=== PATIENT | female | born 1955 | race Caucasian/White ===

== ENCOUNTER 2023-04-16 14:03 | Outpatient (AMB) | payer MEDICARE, MEDICAID, SELFPAY ==
--- NOTE | 2023-04-16 14:04 | A.OFFVIS_ITS ---
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 She reports her pain started 7 years ago with no injury. 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 She has had injections in the past, as recent as this past spring. The injection was done in [place] by a [facility] Doctor Martin. She has not had any physical therapy for this specifically and she does use a brace for her right knee. She uses a walker to walk and uses heat to help with pain. The right hurts more than the left. She has not had a viscosupplementation injection. She has had cortisone injections which gave her minimal relief. She wishes hold off on surgery for as long as possible. Allergies No Known Allergies Allergy (Verified 04/16/23 14:16) Physical Exam Const Other: Well-nourished well-developed very friendly female awake alert and oriented x3 in no acute distress Extrem Other: Bilateral lower extremity examination shows good capillary refill, no skin lesions noted, normal sensation light touch Bilateral knee examination shows minimal effusions, palpable crepitus with range of motion, pain with range of motion, range of motion from -3 degrees to 115 degrees, no instability Results Reviewed Results Reviewed: X-rays of the patient's bilateral knees taken previously show joint space narrowing, subchondral sclerosis, no acute bony abnormalities Assessment & Plan Assessment & Plan (1) Arthritis of left knee: Code(s): M17.12 - Unilateral primary osteoarthritis, left knee Plan: Ms. White presents with progressively worsening bilateral knee pains, right greater than left, due to degenerative joint disease. I had a lengthy discussion with the patient regarding the treatment options. She wishes to hold off on surgery for as long as possible. I agree with this plan. She has not gotten good relief from cortisone injections in the past. Thus, I will see whether not her insurance company will cover a series of viscosupplementation injections for both of her knees. I will see her back once the injections are available. If she fails continued non operative treatments we will further discuss the risks and benefits of total knee replacement surgery. The patient will follow-up as instructed. I spent 22 minutes in reviewing the patient's records and imaging studies, seeing the patient and documenting in the medical record. (2) Arthritis of right knee: Code(s): M17.11 - Unilateral primary osteoarthritis, right knee Coding Level of Care Code New Pt Level 2 (23022) Diagnoses Arthritis of left knee M17.12 Arthritis of right knee M17.11
== END 2023-04-16 14:25 | disposition home or self-care (01) ==
PROVIDERS: Visit Provider Orthopaedic Surgery
DX: M17.0 Bilateral primary osteoarthritis of knee (principal)
CPT/HCPCS: 99202

== ENCOUNTER → 2023-04-16 14:03 | Outpatient (BNVA) | payer MEDICARE, MEDICAID, SELFPAY | PROVIDERS: Visit Provider Orthopaedic Surgery | DX: M17.0 Bilateral primary osteoarthritis of knee (principal) | CPT/HCPCS: 99202 ==

== ENCOUNTER 2023-05-27 12:53 | Outpatient (AMB) | payer MEDICARE, MEDICAID, SELFPAY ==
--- NOTE | 2023-05-27 13:00 | A.OFFVIS_ITS ---
Intake Intake Visit Reasons: OV - B/L Durolane Gel Injections Intake Note: Bess is a 68 year old female who presents with complaints of progressively worsening bilateral knee pains. She describes her pains as sharp in nature. She has had cortisone injections in the past which gave her minimal relief. She has also tried Tylenol and anti-inflammatory medicines which gave her minimal relief. She has not had a viscosupplementation injection. She wishes to hold off on surgery for as long as possible. Allergies No Known Allergies Allergy (Verified 05/27/23 13:00) Physical Exam Const Other: Well-nourished well-developed very friendly female awake alert and oriented x3 in no acute distress Extrem Other: Bilateral lower extremity examination shows good capillary refill, no skin lesions noted, normal sensation light touch Bilateral knee examination shows minimal effusions, palpable crepitus with range of motion, pain with range of motion, range of motion from -3 degrees to 115 degrees, no instability Office Procedures Joint Injection/Drain Joint Injection/Drain Primary Site: right knee Prep: site was prepped using aseptic technique Injected: 60 mg of (Durolane) and 1% plain lidocaine Procedure: The patient tolerated the procedure well Coding 30868 - Large joint Procedure code (CPT) selection complete Joint Injection/Drain Joint Injection/Drain Primary Site: left knee Prep: site was prepped using aseptic technique Injected: 60 mg of (Durolane) and 1% plain lidocaine Procedure: The patient tolerated the procedure well Coding 72109 - Large joint Procedure code (CPT) selection complete Results Reviewed Results Reviewed: X-rays of the patient's bilateral knee show joint space narrowing, subchondral sclerosis, no acute bony abnormalities Assessment & Plan Assessment & Plan (1) Arthritis of left knee: Code(s): M17.12 - Unilateral primary osteoarthritis, left knee (2) Arthritis of right knee: Code(s): M17.11 - Unilateral primary osteoarthritis, right knee Plan Ms. White presents with bilateral knee pains due to degenerative joint disease. I had a lengthy discussion with the patient regarding the treatment options. She wishes to hold off on surgery for as long as possible. I agree with this plan. She has not gotten good relief from cortisone injections in the past. Thus, the risks and benefits of bilateral knee viscosupplementation injections were discussed with the patient. The patient wished to proceed. She tolerated the bilateral knee Durolane injections well. Activity modifications were discussed at length with the patient. She will follow up with me on an as- needed basis should her symptoms not plateau at an unacceptable level over the next few months. Feel free to call me at any time should questions regarding her orthopedic management arise. I spent 22 minutes in reviewing the patient's records and imaging studies, seeing the patient and documenting in the medical record. Orders: Orders AMB Joint Injection/Aspiration Today M17.12 - Unilateral primary osteoarthritis, left knee AMB Joint Injection/Aspiration Today M17.11 - Unilateral primary osteoarthritis, right knee Coding Level of Care Code Est Pt Level 2 (42808) Diagnoses Arthritis of left knee M17.12 Arthritis of right knee M17.11 CPT Codes Coding - 52381 Large joint: 44305 - Large joint ([id number]) Coding - 10004 Large joint: 34953 - Large joint ([id number])
== END 2023-05-27 13:21 | disposition home or self-care (01) ==
PROVIDERS: Visit Provider Orthopaedic Surgery
DX: M17.0 Bilateral primary osteoarthritis of knee (principal)
CPT/HCPCS: 20610

== ENCOUNTER → 2023-05-27 12:53 | Outpatient (BNVA) | payer MEDICARE, MEDICAID, SELFPAY | PROVIDERS: Visit Provider Orthopaedic Surgery | DX: M17.12 Unilateral primary osteoarthritis, left knee (principal); M17.11 Unilateral primary osteoarthritis, right knee | CPT/HCPCS: 20610; J7318 ==

== ENCOUNTER 2023-09-23 13:02 | Outpatient (AMB) | payer MEDICARE, MEDICAID, SELFPAY ==
--- NOTE | 2023-09-23 13:09 | A.OFFVIS_ITS ---
Intake Intake Visit Reasons: OV- B/L knee pain Intake Note: Bess is a 68 year old female who presents with bilateral knee pains. She describes her pains as achy in nature. She has had cortisone injections in the past which gave her minimal relief. She has also had viscosupplementation injections which gave her fairly good relief. She has tried Tylenol and anti- inflammatory medicines which gave her only mild relief. She has also done physical therapy exercises which aggravated her pain. She wishes to hold off on surgery for as long as possible. Allergies No Known Allergies Allergy (Verified 09/23/23 13:12) Medication List - Last Reconciled 09/23/23 by Oscar Ortiz MD atorvastatin 20 mg PO DAILY cyanocobalamin (vitamin B-12) 1,000 mcg PO DAILY enoxaparin mg subcut hydrochlorothiazide 12.5 mg PO DAILY levothyroxine 25 mcg PO DAILY metformin ER 500 mg PO DAILY semaglutide (Ozempic) mg subcut warfarin mg PO Physical Exam Const Other: Well-nourished well-developed very friendly female awake alert and oriented x3 in no acute distress Extrem Other: Bilateral lower extremity examination shows good capillary refill, no skin lesions noted, normal sensation light touch Bilateral knee examination shows minimal effusions, palpable crepitus with range of motion, pain with range of motion, range of motion from -3 degrees to 115 degrees, no instability Results Reviewed Results Reviewed: X-rays of the patient's bilateral knee show joint space narrowing, subchondral sclerosis, no acute bony abnormalities Assessment & Plan Assessment & Plan (1) Arthritis of right knee: Code(s): M17.11 - Unilateral primary osteoarthritis, right knee (2) Arthritis of left knee: Code(s): M17.12 - Unilateral primary osteoarthritis, left knee Plan Ms. White presents with bilateral knee pains due to degenerative joint disease. I had a lengthy discussion with the patient regarding the treatment options. She wishes to hold off on surgery for as long as possible. I agree wi th this plan. She has not gotten good relief from cortisone injections in the past. Thus, I will see whether not her insurance company will cover a another viscosupplementation injection for both of her knees. I will see her back once the injections are available. Feel free to call me at any time should questions regarding her orthopedic management arise. I spent 22 minutes in reviewing the patient's records and imaging studies, seeing the patient and documenting in the medical record. Coding Level of Care Code Est Pt Level 2 (79531) Diagnoses Arthritis of right knee M17.11 Arthritis of left knee M17.12
== END 2023-09-23 13:48 | disposition home or self-care (01) ==
PROVIDERS: Visit Provider Orthopaedic Surgery
DX: M17.0 Bilateral primary osteoarthritis of knee (principal)
CPT/HCPCS: 99213

== ENCOUNTER → 2023-09-23 13:02 | Outpatient (BNVA) | payer MEDICARE, MEDICAID, SELFPAY | PROVIDERS: Visit Provider Orthopaedic Surgery | DX: M17.0 Bilateral primary osteoarthritis of knee (principal) | CPT/HCPCS: 99212 ==

== ENCOUNTER 2023-12-16 09:37 | Outpatient (AMB) | payer MEDICARE, MEDICAID, SELFPAY ==
--- NOTE | 2023-12-16 09:42 | A.OFFVIS_ITS ---
Vital Signs 12/16/23 09:45 Height 5 ft 3 in Weight 240 lb BMI 42.5 Intake Visit Reasons: O/V B/L durolane injection Intake Note: Bess is a 68 year old female who presents today with her granddaughter with complaints of bilateral knee pains. The patient describes her pains as sharp and severe in nature. Her pains have gotten worse over the last few years in spite of continued non operative treatments. She has had cortisone injections which gave her no relief. She has also had viscosupplementation injections which gave her fairly good relief. She has tried Tylenol which gives her minimal relief. She would like to hold off on surgery for as long as possible. Allergies No Known Allergies Allergy (Verified 12/16/23 09:45) Medication List - Last Reconciled 12/16/23 by Oscar Ortiz MD atorvastatin 20 mg PO DAILY cyanocobalamin (vitamin B-12) 1,000 mcg PO DAILY enoxaparin mg subcut hydrochlorothiazide 12.5 mg PO DAILY levothyroxine 25 mcg PO DAILY metformin ER 500 mg PO DAILY semaglutide (Ozempic) mg subcut warfarin mg PO Physical Exam Vital Signs: BMI result Body Mass Index 42.5 Const Other: Well-nourished well-developed very friendly female awake alert and oriented x3 in no acute distress Extrem Other: Bilateral lower extremity examination shows good capillary refill, no skin lesions noted, normal sensation light touch Bilateral knee examination shows minimal effusions, palpable crepitus with range of motion, pain with range of motion, no instability Office Procedures Joint Injection/Drain Joint Injection/Drain Primary Site: left knee Prep: site was prepped using aseptic technique Injected: 60 mg of (Durolane viscosupplementation) and 1% plain lidocaine Procedure: The patient tolerated the procedure well Coding 19532 - Large joint Procedure code (CPT) selection complete Joint Injection/Drain Joint Injection/Drain Primary Site: right knee Prep: site was prepped using aseptic technique Injected: 60 mg of (Durolane viscosupplementation) and 1% plain lidocaine Procedure: The patient tolerated the procedure well Coding 86621 - Large joint Procedure code (CPT) selection complete Results Reviewed Results Reviewed: X-rays of the patient's bilateral knee show joint space narrowing, subchondral sclerosis, no acute bony abnormalities Assessment & Plan Assessment & Plan (1) Arthritis of left knee: Code(s): M17.12 - Unilateral primary osteoarthritis, left knee Category: Medical (2) Arthritis of right knee: Code(s): M17.11 - Unilateral primary osteoarthritis, right knee Category: Medical Plan Ms. White presents with bilateral knee pains due to degenerative joint di sease. I had a lengthy discussion with the patient regarding the treatment options. She wishes to hold off on surgery for as long as possible. I agree with this plan. She has not gotten good relief from cortisone injections in the past. The risks and benefits of bilateral knee Durolane viscosupplementation injections were discussed at length with the patient. The patient wished to proceed. She tolerated the injections well. She will continue with her home exercise program. She will contact me prior to her follow-up appointment in 3 months should any questions or concerns arise. I spent 21 minutes in reviewing the patient's records and imaging studies, seeing the patient and documenting in the medical record. Orders: Orders AMB Joint Injection/Aspiration Today M17.11 - Unilateral primary osteoarthritis, right knee AMB Joint Injection/Aspiration Today M17.12 - Unilateral primary osteoarthritis, left knee Coding Level of Care Code Est Pt Level 3 (16072) Diagnoses Arthritis of left knee M17.12 Arthritis of right knee M17.11 CPT Codes Coding - 54327 Large joint: 10064 - Large joint ([id number]) Coding - 55628 Large joint: 14983 - Large joint ([id number])
[2023-12-16 09:45] VITALS: BMI 42.5
== END 2023-12-16 10:04 | disposition home or self-care (01) ==
PROVIDERS: Visit Provider Orthopaedic Surgery
DX: M17.0 Bilateral primary osteoarthritis of knee (principal)
CPT/HCPCS: 20610; 99213

== ENCOUNTER → 2023-12-16 09:37 | Outpatient (BNVA) | payer MEDICARE, MEDICAID, SELFPAY | PROVIDERS: Visit Provider Orthopaedic Surgery | DX: M17.0 Bilateral primary osteoarthritis of knee (principal) | CPT/HCPCS: 20610; 99212; J7318 ==

== ENCOUNTER 2024-08-04 08:45 | Outpatient (REF) | payer MEDICARE, SELFPAY ==
--- OUTSIDE RECORDS SUMMARY | 2024-08-05 09:00 | XMS_ITS | Clinical Summary ---
Author Organization [facility] Address [address] [place] [address] Care Team Providers Care Counter Top Maker Name Role Phone Katerine Novak Primary Care Provider [phone] Medical History Medical History Date Comments Essential [...] age to complete this topic Care Teams Counter Top Maker Relationship Specialty Start Date End Date Katerine Novak PA [address] [place] [phone] PCP - General Internal Medicine 03/25/16
--- OUTSIDE RECORDS SUMMARY | 2024-08-05 09:00 | XMS_ITS | Clinical Summary ---
Author Organization [facility] Address [address] [place] [address] Care Team Providers Care Granite Countertop Installer Name Role Phone Unavailable Primary Care Provider [...] 11/202003/29/2021 Polyneuropathy associated with underlying diseas e ([facility]) 09/21/2020 Acquired hypothyroidism 04/25/2020 Atrial flutter ([facility]) 04/06/2019 Pacemaker 03/16/2019 04/06/2019 Controlled type 2 diabetes m ellitus with hyperglycemia ([facility]) 12/03/2018 Hyperhidrosis 03/29/2018 Dyspepsia 03/29/2018 History of [...] on April 13, 2017 9:50 Encounter info: [id number], [facility] [place] 04/13/2017 - 04/13/2017 Contributor system: [employer] * Final Report * NM Myocardial Perfusion Spect Multi Myocardial Perfusion Imaging Demographics Patient Name SG BUTLER Gender Female [employer] Room Number Height 65 inches Date of 1955 Weight 300 pounds Age 61 year(s) BSA 2.35 m2 Accession Number [id number] BMI 49.98 kg/m2 Date of study 04/13/2017 Resident Referring Physician Donato Brunson MD Fellow Ekaterina Flores MD Interpreting Physician Patrice Do MD [place] Technologist Devon Henriquez Procedure Procedure Type: Myocardial [...] complete appropriate response Functional capacity:Not assessed HR/BP product:58872 Time of RP Injection:050 min Chest pain:No [...] This document has an image Atrial fibrillation ([facility]) 08/25/2017 Overview (08/25/2017): Name: BESS BETTENCOURT Admit Date: 05/25/17 - 1955/62yr Discharge Date: Location: [facility] - Report #: [id number] DATE OF PROCEDURE: 05/25/2017 PRIMARY CARE PHYSICIAN: RICHARD Nair PROCEDURE PERFORMED: 1. Supraventricular tachycardia ablation. 2. A 3D electro-anatomy mapping. 3. Isuprel drug testing. 4. Intracardiac echocardiography. 5. Transseptal puncture. INDICATION: This is a very pleasant 62-year-old Polish-speaking female who has history of recurrent symptomatic [...] femoral vein using modified Seldinger technique. One 8-New Zealander and 5-New Zealander sheath were placed into the right femoral vein and two 7-New Zealander and 5-New Zealander sheath was placed into the left femoral vein. Catheters were placed in their respective positions. 1. Dynamic Decapolar [employer] catheter for coronary sinus with left atrial pacing and recording. 2. [facility] for right atrium. 3. [facility] for right ventricle. 4. [facility] his bundle pacing and recording. Baseline intervals reveal [place] interval 148 milliseconds, AH of 56 milliseconds. [...] made to go transseptal. We placed a 9-New Zealander IV sheath in the right groin for the ICE catheter. Then, with the help of SL1 and [place] needle, we were able to obtain a [...] obtain a safe transseptal access with a Bucyrus needle, but while advancing the sheath, we lost the transseptal access. Then, we reattempted after placing ICE catheter in adequate position to see the fossa ovalis and sheath actually fell into the fossa ovalis and went transseptal without actually advancing the needle. I am not 100% confirm this happened because of PFO or because of the previous transseptal access with Bucyrus needle. Nonetheless, we did a couple of [...] the outpatient visit. Diana Olvera MD Doc #:[id number] cc: RICHARD Nair PA Dictating Provider: DIANA [...] degenerative changes without acute fracture or dislocation. [id number] Dictating Physician: ISSAC SALAS MD Electronically Signed [...] Plan of Treatment Not on file [place]
== END 2024-08-04 08:46 | disposition home or self-care (01) ==
LOC: HO.HOSX 08:45
PROVIDERS: Visit Provider Orthopaedic Surgery
DX: M17.12 Unilateral primary osteoarthritis, left knee (principal)
CPT/HCPCS: 20610; 99212; J2003; J7318

== ENCOUNTER 2024-08-04 09:03 | Outpatient (AMB) | payer MEDICARE, MEDICAID, SELFPAY ==
[2024-08-04 09:20] VITALS: BMI 42.5
--- NOTE | 2024-08-04 09:20 | MHC.OFFVIS ---
Vital Signs 08/04/24 09:20 Height 5 ft 3 in Weight 240 lb BMI 42.5 Intake Visit Reasons: OV- B/L knee pain Intake Note: Bess is a 69 year old female who presents with complaints of progressively worsening bilateral knee pains. She describes her pains as sharp in nature. She has had cortisone injections in the past which gave her minimal relief. She has also had Durolane viscosupplementation injections which gave her good relief. She has tried Tylenol and anti-inflammatory medicines which gave her minimal relief. She would like to hold off on surgery if at all possible. International Representative Required: No Allergies No Known Allergies Allergy (Verified 08/04/24 09:22) Medication List - Last Reconciled 08/04/24 by Oscar Ortiz MD atorvastatin 20 mg PO DAILY cyanocobalamin (vitamin B-12) 1,000 mcg PO DAILY enoxaparin mg subcut hydrochlorothiazide 12.5 mg PO DAILY levothyroxine 25 mcg PO DAILY metformin ER 500 mg PO DAILY semaglutide (Ozempic) mg subcut warfarin mg PO Physical Exam Vital Signs: BMI result Body Mass Index 42.5 Const Other: Well-nourished well-developed very friendly female awake alert and oriented x3 in no acute distress Extrem Other: Bilateral lower extremity examination shows good capillary refill, no skin lesions noted, normal sensation light touch Bilateral knee examination shows minimal effusions, palpable crepitus with range of motion, pain with range of motion, no instability Office Procedures AMB Joint Injection/Aspiration Joint Injection/Aspiration Primary Site: left knee Prep: site was prepped using aseptic technique Injected: 60 mg of (Durolane viscosupplementation) and 1% plain lidocaine Procedure: The patient tolerated the procedure well Coding 11973 - Large joint Procedure code (CPT) selection complete AMB Joint Injection/Aspiration Joint Injection/Aspiration Primary Site: right knee Prep: site was prepped using aseptic technique Injected: 60 mg of (Durolane viscosupplementation) and 1% plain lidocaine Procedure: The patient tolerated the procedure well Coding 71764 - Large joint Procedure code (CPT) selection complete Results Reviewed Results Reviewed: X-rays of the patient's bilateral knees taken previously show joint space narrowing, subchondral sclerosis, no acute bony abnormalities Assessment & Plan Assessment & Plan (1) Osteoarthritis of left knee: Code(s): M17.12 - Unilateral primary osteoarthritis, left knee Category: Medical (2) Osteoarthritis of right knee: Code(s): M17.11 - Unilateral primary osteoarthritis, right knee Category: Medical Plan Bess presents with bilateral knee pains due to osteoarthritis. The risks and benefits of bilateral knee Durolane viscosupplementation injections were discussed at length with the patient. The patient wished to proceed. She tolerated the injections well. She will continue with her home exercise program. She will contact me prior to her follow-up appointment in 6 months should any questions or concerns arise. Feel free to call me at any time should questions regarding her orthopedic management arise. I spent 22 minutes in reviewing the patient's records and imaging studies, seeing the patient and documenting in the medical record. Orders: Orders XR knee RT 3V Today M17.11 - Unilateral primary osteoarthritis, right knee AMB Joint Injection/Aspiration Today M17.12 - Unilateral primary osteoarthritis, left knee AMB Joint Injection/Aspiration Today M17.11 - Unilateral primary osteoarthritis, right knee XR knee LT 3V Today M17.12 - Unilateral primary osteoarthritis, left knee Coding Level of Care Code Est Pt Level 3 (21589) Complex EM visit Add On G2211 Diagnoses Osteoarthritis of left knee M17.12 Osteoarthritis of right knee M17.11 CPT Codes Coding - 13373 Large joint: 78261 - Large joint ([id number]) Coding - 19561 Large joint: 75373 - Large joint ([id number])
--- OUTSIDE RECORDS SUMMARY | 2024-08-04 09:33 | XMS_ITS | Clinical Summary ---
Author Organization [facility] Address [address] [place] [address] Care Team Providers Care Child Protective Services Specialist Name Role Phone Unavailable Primary Care Provider Unavailabl e Source Comments PLEASE NOTE, if this patient is a minor, it may be UNLAWFUL to discuss sensitive information that is contained in these records (such as FAMILY PLANNING, MENTAL HEALTH or SUBSTANCE ABUSE) with the minor patient's parent or other person without the patient's specific authorization.[facility] Allergies Active Allergy Reactions Criticality Noted Date Comments Lisinopril-Hydrochlorothiazide 01/04 Cough Medications No known medications Active Problems Problem Noted Date Diagnosed Date Hx Right MCA stroke s/p thrombectomy 12/2021 LUTHER (obstructive sleep apnea) 11/202003/29/2021 Polyneuropathy associated with underlying diseas e ([facility]) 09/21/2020 Acquired hypothyroidism 04/25/2020 Atrial flutter ([facility]) 04/06/2019 Pacemaker 03/16/2019 04/06/2019 Controlled type 2 diabetes m ellitus with hyperglycemia ([facility]) 12/03/2018 Hyperhidrosis 03/29/2018 Dyspepsia 03/29/[address] ress test 04/13/2017: see impression in overview 08/25/2017 Overview (08/25/2017): Result type: NM Myocard Perf SPECT Multi Result date: April 13, 2017 9:50 Result status: Modified Result title: NM Myocardial Perfusion Spect Multi Performed by: Patrice Do MD on April 13, 2017 9:50 Verified by: Patrice Do MD on April 13, 2017 9:50 Encounter info: [id number], [facility] [place], One Time OP, 04/13/2017 - 04/13/2017 Contributor system: Asana * Final Report * NM Myocardial Perfusion Spect Multi Myocardial Perfusion Imaging Demographics Patient Name SG BUTLER Gender Female [employer] Room Number Height 65 inches Date of 1955 Weight 300 pounds Age 61 year(s) BSA 2.35 m2 Accession Number [id number] BMI 49.98 kg/m2 Date of study 04/13/2017 Resident Referring Physician Donato Brunson MD Fellow Ekaterina Flores MD Interpreting Physician Patrice Do MD [facility] Technologist Devon Henriquez Procedure Procedure Type: Myocardial Perfusion Imaging:NM Myocardial Perfusion Spect Multi Indications: Supraventricular Tachycardia. Stress Protocols Resting HR:45 bpm Resting BP:162/79 mmHg Stress Protocol:Pharmacologic - IV Regadenoson Dose: 0.4 mg Reason for Pharmacologic: Unable to ambulate Peak HR:75 bpm HR response: Not assessed Peak BP:168/100 mmHg (pharmacologic study) Predicted HR: 159 bpm HR recovery: Not Assessed % of predicted HR: 47 (Pharmacologic Study) Test duration: 1 min BP response: Normal resting BP with Reason for termination:Protocol complete appropriate response Functional capacity:Not assessed HR/BP product:13325 Time of RP Injection:050 min Chest pain:No chest pain ST Changes:No significant ST changes Arrhythmias No arrhythmias. Complications Procedure complication was none. Stress Interpretation Pharmacologic study only. Physiologic response not assessed - pharm stress. No ECG evidence of ischemia. Imaging Protocols - One Day Rest Stress Isotope:Tc99m Sestamibi Isotope: Tc99m Sestamibi Isotope dose:11.7 mCi IV Isotope dose:36.2 mCi IV Date:04/13/2017 Date:04/13/2017 Technique: Gated Technique: Gated Supine Supine Imaging Findings Very large fixed anteroseptal, anterior, anterolateral and apical defect with preserved regional wall thickening most compatible with soft tissue attenuation. No definite reversible defects noted. Normal overall LV systolic function with an estimated LVEF of approximately 59 % at rest and 72 % on the delayed post stress images with normal regional wall thickening. Imaging Results Rest ejection Stress ejection Ejection fraction:59 % Ejection fraction:72 % EDV :133 ml EDV :130 ml ESV :54 ml ESV :37 ml Stroke volume :79 ml Stroke volume :93 ml LV mass :138 gr LV mass :146 gr Conclusions Summary Very large fixed anteroseptal, anterior, anterolateral and apical defect with preserved regional wall thickening most compatible with soft tissue attenuation. No definite reversible defects noted. Normal overall LV systolic function with an estimated LVEF of approximately 59 % at rest and 72 % on the delayed post stress images with normal regional wall thickening. ECG portion of the stress test reported separately. Signatures NM Myocardial Perfusion Spect Multi This document has an image Atrial fibrillation ([facility]) 08/25/2017 Overview (08/25/2017): Name: BESS BETTENCOURT Admit Date: 05/25/17 - 1955/62yr Discharge Date: Location: [facility] - Report #: [id number] DATE OF PROCEDURE: 05/25/2017 PRIMARY CARE PHYSICIAN: RICHARD Nair PROCEDURE PERFORMED: 1. Supraventricular tachycardia ablation. 2. A 3D electro-anatomy mapping. 3. Isuprel drug testing. 4. Intracardiac echocardiography. 5. Transseptal puncture. INDICATION: This is a very pleasant 62-year-old Eritrean-speaking female who has history of recurrent symptomatic supraventricular tachycardia at 200 beats per minute with hemodynamic instability and required cardioversion in the ER. She was brought in electively for EP study and ablation. Risks and benefits of the procedure were explained, informed consent obtained. Alternative medical therapy was offered. The patient agreed to proceed. PROCEDURE DETAILS: Bilateral groins were prepped and draped in sterile aseptic precautions. 2% lidocaine was used for local anesthesia and 2 accesses were obtained into the right femoral vein and 3 into the left femoral vein using modified Seldinger technique. One 8-Mauritanian and 5-Mauritanian sheath were placed into the right femoral vein and two 7-Mauritanian and 5-Mauritanian sheath was placed into the left femoral vein. Catheters were placed in their respective positions. 1. Dynamic Decapolar [employer] catheter for coronary sinus with left atrial pacing and recording. 2. [facility] for right atrium. 3. [facility] for right ventricle. 4. [facility] his bundle pacing and recording. Baseline intervals reveal NJ interval 148 milliseconds, AH of 56 milliseconds. HV was 50 milliseconds, QRS duration 76 milliseconds, QT 414 milliseconds, RR interval was 1104 milliseconds. Then the comprehensive electrophysiology study was performed with attempted induction of arrhythmia. With pacing at Wenckebach cycle length, we were able to induce a supraventricular tachycardia with a long RP morphology. The CS activation was distal to proximal during the SVT with earliest CS signal and CS distal with a VA timing of approximately 88 milliseconds. This was nonsustained and we then started Isuprel at 2 mcg per kg per minute. Repeat SVT was performed with similar maneuver at Wenckebach cycle length pacing at Wenckebach cycle length. Again repeat SVT was started cycle length of 275 milliseconds. Pacing from RV catheter led to VAV response with post-pacing interval of 378 milliseconds with tachycardia cycle length of 275 milliseconds. His refractory PVCs were able to alter the tachycardia and delay the atrial activation by a 15-20 milliseconds. 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 The tachycardia was terminated with rapid atrial pacing. Then, we performed V pacing from the ventricle, which also lead to an eccentric activation of coronary sinus with CS distal at the earliest activation. At the time, decision was made to go transseptal. We placed a 9-Mauritanian IV sheath in the right groin for the ICE catheter. Then, with the help of SL1 and [place] needle, we were able to obtain a transseptal access under echocardiographic guidance. Transseptal access was slightly difficult. The fossa ovalis was not very easily visualized by the ICE catheter. Different maneuvers with the ICE catheter with some retroflexion as well as some rotation of the catheter, we were able to see some part of the fossa ovalis. Under careful ICE guidance as well as fluoroscopy guidance, we were able to obtain a safe transseptal access with a [place] needle, but while advancing the sheath, we lost the transseptal access. Then, we reattempted after placing ICE catheter in adequate position to see the fossa ovalis and sheath actually fell into the fossa ovalis and went transseptal without actually advancing the needle. I am not 100% confirm this happened because of PFO or because of the previous transseptal access with C[place]om needle. Nonetheless, we did a couple of saline infusions to confirm we were in the left atrium. We did Isovue contrast infusion to make sure we were in the left atrium and pulmonary vein was visualized. At that time, then we would advance the guidewire into the left upper pulmonary vein. Echocardiography was used to confirm, make sure there was no pericardial effusion. Then, 8000 units of heparin was given. Then, we exchanged the wire to the ablation catheter. Then mapped the posterolateral left atrium with the help of an irrigated ablation catheter for earliest signals. Actually, pretty good signals were found from 6 o'clock till 7:30 on the mitral annulus. We were 15-25 milliseconds earlier than the CS catheter. Some of the really good looking early signals, we performed ablation on it, but were not able to terminate the VA conduction. The ablation was performed and continuous ventricular pacing with eccentric CS activation. Eventually, at around 7 o'clock position, we came on ablation and the VA timing increased and eventually the VA conduction stopped after maybe 30 seconds of ablation. After stopping the ablation, the VA conduction restarted. We knew we were in the vicinity of the pathway and then little more anterior torque to the catheter, more toward the annulus, actually we found a good location and within 3 seconds of ablation the VA conduction was changed from eccentric to concentric with Wenckebach pattern. Then, ablation was continued for another 30 seconds and came off. We waited for 10 minutes after the ablation with confirmed concentric VA activation. We again did a comprehensive electrophysiology study with Isuprel up to 2 mcg and rapid atrial pacing as well as early premature stimuli from the atrium and no tachycardia could be induced. EP study details reveals sinus node recovery time of 1200 milliseconds with corrected sinus node of 95 milliseconds. AV Wenckebach cycle length was 300 milliseconds. AV chasity ERP was 600/270 milliseconds. Atrial ERP was 600/250 milliseconds and while on Isuprel the AV chasity ERP was 600/220 milliseconds and VA Wenckebach cycle was 280 milliseconds. At the end of the case, all catheters removed. ICE catheter again was used to confirm, make sure there was no pericardial effusion. ACT was checked and once the ACT was less than 180 seconds we withdrew all the sheaths and hemostasis was achieved. The patient tolerated the procedure well. There were no complications. During the case, heparin boluses were given for target ACT of 300+. 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 RECOMMENDATIONS: The patient will be observed in bed rest for 4 hours and can be later discharged today. We will not change any medications at this time. She will continue her 50 of metoprolol, which probably will be reduced and then discontinued as applicable in the outpatient visit. Diana Olvera MD Doc #:[id number] cc: RICHARD Nair PA Dictating Provider: DIANA OLVERA MD CHASHA/ ETS <Electronically signed by DIANA OLVERA MD> [id number] S: 06/02/17 1317 Chronic pain of both knees 08/25/2017 Overview (08/25/2017): CR Knee LT 4 or more View - 10/17/16 - 1000 INDICATION: Knee pain FINDINGS: 4 views of the right knee were obtained. Mild medial joint space narrowing with osteophytosis. There is no evidence of fracture or dislocation. No radiopaque foreign body or periosteal reaction is noted. There is no significant soft tissue abnormality. Possible small joint effusion. CONCLUSION: Mild degenerative changes without acute fracture or dislocation. 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 09/26/2014, EMG 03/25/2016 with bilateral lumbar radiculopathy 09/26/2013 Morbid obesity (HCC-CMS) 09/26/2013 S/P CYNDIE (total abdominal hysterectomy) 1992 no m alignancy 09/26/2013 Essential hypertension, benign 09/26/2013 Social History Tobacco Use Types Packs/Day Years Used Date Smoking Tobacco: Never Smokeless Tobacco: Never Alcohol Use Standard Drinks/Week Comments No 0 (1 standard drink = 0.6 oz pur e alcohol) Social Connections Answer Date Recorded Connectedness 0 10/31/2021 Financial Resource Strain Answer Date R ecorded Financial Resource Strain 0 2021 Stress Answer Date Recorded Stress 0 10/31/2021 Physical Activity Answer Date Recorded Physical Activity 0 02/12/2019 Food Insecurity Answer Date Recorded Food 0 10/31/2021 Transportation Needs Answer Date Record ed Transportation 0 10/31/2021 Housing Stability Answer Date Recorded Housing 0 10/31/2021 Safety and Environment Answer Date Noe rded Safety 0 02/12/2019 Utilities Answer Date Recorded Utilities 0 10/31/2021 Employment Answer Date Recorded Employment 0 02/12/2019 Comments No Sex and Gender Information Value Date Recorded Sex Assigned at Female 08/25/2017 7:13 PM PST Legal Sex Female 8:55 AM PST Gender Identity Female 08/25/2017 7:13 PM PST Sexual Orientation Straight 08/25/2017 7: 13 PM PST Last Filed Vital Signs Vital Sign Reading Time Taken Comments Blood Pressure 126/72 10/31/2021 10:29 AM EDT Pulse 60 10/31/2021 10:29 AM EDT Temperature 36.8 ??C (98.3 ??F) 10/31/2021 10:29 AM E DT Respiratory Rate 20 10/31/2021 10:29 AM EDT Oxygen Saturation 91% 10/31/2021 10:29 AM EDT Inhaled Oxygen Concentration - - Weight 133.8 kg (295 lb) 10/31/2021 10:29 AM EDT Height 165.1 cm (5' 5 ) 10/31/2021 10:29 AM EDT Body Mass Index 49.09 10/31/2021 10:29 AM EDT Plan of Treatment Not on file [place]
--- OUTSIDE RECORDS SUMMARY | 2024-08-04 09:33 | XMS_ITS | Clinical Summary ---
Author Organization [facility] Address [address] [place] [address] Care Team Providers Care Telephone Appointment Clerk Name Role Phone Katerine Novak Primary Care Provider [phone] Medical History Medical History Date Comments Essential hypertension DX:Essent ial hypertension Family History Medical History Relation Name Comments Autoimmune disease Neg Hx Breast cancer Neg Hx Colon cancer Neg Hx Coronary artery disease Neg Hx Diabetes Neg Hx Heart attack Neg Hx Heart failure Neg Hx Hyperlipidemia Neg Hx Hypertension Neg Hx Mental illness Neg Hx Prostate cancer Neg Hx Sleep apnea Neg Hx Thyroid disease Neg Hx Social History Tobacco Use Types Packs/Day Years Used Date Smoking Tobacco: Never Smokeless Tobacco: Never Alcohol Use Standard Drinks/Week Comments Not Asked 0 (1 standard drink = 0.6 oz pur e alcohol) Comments Unknown Sex and Gender Information Value Date Recorded Sex Assigned at Not on file Legal Sex Female 11:16 AM EST Gender Identity Not on file Sexual Orientation Not on file Obstetrics History Plan of Treatment Health Maintenance Due Date Last Done Comments Breast Cancer Screening 1955 DTaP,Tdap,and Td Vaccines (1 - Tdap) 1974 Pneumococcal Vaccine: 50+ Ye ars (1 of 1 - PCV) 2005 Zoster Vaccines (1 of 2) 2005 Cholesterol Screening (Lipid Panel) 05/20/2022 Colorectal Cancer Screening: Colonoscopy 05/20/2022 Depression Screening 05/20/2022 Falls Risk Assessment 05/20/2022 Hepatitis C Screening 05/20/2022 Osteoporosis Screening (Bone Density Screening) 05/20/2022 Social Influencers of Health Screening 05/20/2022 COVID-19 Vaccine ( - 2023-2 5 season) 2024 Influenza Vaccine (#1) 2024 RSV Immunization Patients 60 + Years Old (1 - 1-dose 75+ series) 2030 HIB Vaccines Aged Out No longer eligi ble based on patient's age to complete this topic HPV Vaccines Aged Out No longer eligi ble based on patient's age to complete this topic Hepatitis A Vaccines Aged Out No long er eligible based on patient's age to complete this topic Hepatitis B Vaccines Aged Out No long er eligible based on patient's age to complete this topic IPV Vaccines Aged Out No longer eligi ble based on patient's age to complete this topic MMR Vaccines Aged Out No longer eligi ble based on patient's age to complete this topic Meningococcal ACWY Vaccine Aged Out N o longer eligible based on patient's age to complete this topic Meningococcal B Vacine Aged Out No lo nger eligible based on patient's age to complete this topic RSV Immunization Patients Un amy 20 months Aged Out No longer eligible b ased on patient's age to complete this topic Varicella Vaccines Aged Out No longer eligible based on patient's age to complete this topic Care Teams Telephone Appointment Clerk Relationship Specialty Start Date End Date Katerine Novak PA [address] [place] [phone] PCP - General Internal Medicine 03/25/16
== END 2024-08-04 09:55 | disposition home or self-care (01) ==
PROVIDERS: Visit Provider Orthopaedic Surgery
DX: M17.0 Bilateral primary osteoarthritis of knee (principal)
CPT/HCPCS: 20610; 99213

== ENCOUNTER 2025-01-17 08:35 | Outpatient (AMB) | payer MEDICARE, MEDICAID, SELFPAY ==
--- NOTE | 2025-01-17 08:49 | MHC.OFFVIS ---
Intake Visit Reasons: Inj-Bilateral Knee Durolane Inj Intake Note: Bess is a 69 year old female who presents with complaints of bilateral knee pains. She describes her pains as sharp in nature. She has had Durolane injections in the past which gave her fairly good relief. She has failed the last 3 months of conservative treatment. She wishes to hold off on surgery if at all possible. Circulation Representative Required: Yes Circulation Representative Services: Circulation Representative Offered & Declined Circulation Representative Name: Brunilda- Granddaughter Allergies No Known Allergies Allergy (Verified 01/17/25 08:56) Medication List - Last Reviewed 01/17/25 by Patricia Sharpe atorvastatin 20 mg PO DAILY cyanocobalamin (vitamin B-12) 1,000 mcg PO DAILY enoxaparin mg subcut hydrochlorothiazide 12.5 mg PO DAILY levothyroxine 25 mcg PO DAILY metformin ER 500 mg PO DAILY semaglutide (Ozempic) mg subcut warfarin mg PO Physical Exam Const Other: Well-nourished well-developed very friendly female awake alert and oriented x3 in no acute distress Extrem Other: Bilateral lower extremity examination shows good capillary refill, no skin lesions noted, normal sensation light touch Bilateral knee examination shows minimal effusions, palpable crepitus with range of motion, pain with range of motion, no instability Office Procedures AMB Joint Injection/Aspiration Joint Injection/Aspiration Primary Site: left knee Prep: site was prepped using aseptic technique Injected: 60 mg of (Durolane viscosupplementation) and 1% plain lidocaine Procedure: The patient tolerated the procedure well Coding 68205 - Large joint Procedure code (CPT) selection complete AMB Joint Injection/Aspiration Joint Injection/Aspiration Primary Site: right knee Prep: site was prepped using aseptic technique Injected: 60 mg of (Durolane viscosupplementation) and 1% plain lidocaine Procedure: The patient tolerated the procedure well Coding 76893 - Large joint Procedure code (CPT) selection complete Assessment & Plan Assessment & Plan (1) Osteoarthritis of left knee: Code(s): M17.12 - Unilateral primary osteoarthritis, left knee Category: Medical (2) Osteoarthritis of right knee: Code(s): M17.11 - Unilateral primary osteoarthritis, right knee Category: Medical Plan Ms. White presents with bilateral knee pains due to osteoarthritis. The risks and benefits of bilateral knee Durolane viscosupplementation injections were discussed at length with the patient. The patient wished to proceed. She tolerated the injections well. She will continue with her home exercise program. She will contact me prior to her follow-up appointment in 2 months should any questions or concerns arise. Feel free to call me at any time should questions regarding her orthopedic management arise. I spent 20 minutes in reviewing the patient's records and imaging studies, seeing the patient and documenting in the medical record. Orders: Orders AMB Joint Injection/Aspiration Today M17.11 - Unilateral primary osteoarthritis, right knee AMB Joint Injection/Aspiration Today M17.12 - Unilateral primary osteoarthritis, left knee Medications: New lidocaine 5% leave on most painful area for up to 12 hrs 1 patch topical DAILY 30 ea 3RF Coding Level of Care Code Est Pt Level 3 (62800) Complex EM visit Add On G2211 Diagnoses Osteoarthritis of left knee M17.12 Osteoarthritis of right knee M17.11 CPT Codes Coding - 48564 Large joint: 33520 - Large joint ([id number]) Coding - 97613 Large joint: 93071 - Large joint ([id number])
--- OUTSIDE RECORDS SUMMARY | 2025-01-17 08:53 | XMS_ITS | Clinical Summary ---
Author Organization [facility] Address [address] [place] [phone] Care Team Providers Care Rn Supplemental Name Role Phone Katerine Novak Primary Care Provider [phone] Medical History Medical History Date Comments Essential [...] 2005 Zoster Vaccines (1 of 2) 2005 COVID-19 Vaccine ( - 2023-2 5 season) 2024 Depression Screening 06/22/2024 Influenza Vaccine (#1) 2025 RSV Immunization Adult Patie nts (1 - 1-dose 75+ series) 2030 HIB [...] age to complete this topic Meningococcal B Vaccine Aged Out No l onger eligible based on patient's age to complete this topic RSV Immunization Patients Un amy 20 months Aged Out No longer eligible b ased on patient's age to complete this topic Varicella Vaccines Aged Out No longer eligible based on patient's age to complete this topic Care Teams Rn Supplemental Relationship Specialty Start Date End Date Katerine Novak PA [address] [place] [phone] PCP - General Internal Medicine 03/25/16
--- OUTSIDE RECORDS SUMMARY | 2025-01-17 08:53 | XMS_ITS | Clinical Summary ---
Author Organization [facility] Address [address] [address] Phone Care Team Providers Care Waterproofing Supervisor Name Role Phone Unavailable Primary Care Provider Unavailabl e Medications atorvastatin (LIPITOR) 20 MG tablet Take 10 mg by mouth at bed time 6 Active carvedilol (Coreg) 6.25 MG tablet Take 6.25 mg by mouth in the morning and 6.25 mg in the evening. Take with meals. 3 Active Dapagliflozin Propanediol (Farxiga) 10 MG tablet Take 10 mg by mouth 1 (one) time each day 5 Active Dulaglutide (Trulicity) 1.5 MG/0.5ML solution auto-injector Inject 1.5 mg under the skin 1 (one) time per week 5 Active flecainide (TAMBOCOR) 150 MG tablet Take 150 mg by mouth in the morning and 150 mg in the evening. 1 Active ketorolac (ACULAR) 0.5 % ophthalmic solution Administer 1 drop into both eyes in the morning and 1 drop in the evening. 5 Active metFORMIN XR (GLUCOPHAGE-XR) 500 MG 24 hr tablet 1 tablet at bed time 9 Active warfarin (COUMADIN) 2.5 MG tablet 2.5 mg 1 tablet on Thursday and 2 tablets the rest 6 days of the week 5 Active acetaminophen (Tylenol) 325 MG tablet Take 325 mg by mouth in the morning and 325 mg at noon and 325 mg in the evening. Active spironolactone (ALDACTONE) 25 MG tablet Take 25 mg by mouth 1 (one) time each day Active Social History Tobacco Use Types Packs/Day Years Used Date Smoking Tobacco: Never Assessed Comments Unknown Sex and Gender Information Value Date Recorded Sex Assigned at Not on file Legal Sex Female 10:25 AM EDT Gender Identity Not on file Sexual Orientation Not on file Plan of Treatment Upcoming Encounters Date Type Department Care Team (Late st Contact Info) Description 01/17/2025 2:15 PM EDT Office Visit [facility] [address] [phone] Sarahy Martinez ARNP [address] [address] Health Maintenance Due Date Last Done Comments Breast Cancer Screening 1955 Pneumococcal Vaccine: 50+ Ye ars (1 of 2 - PCV) 1974 Colorectal Cancer Screening: Annual FOBT 2004 Colorectal Cancer Screening: Colonoscopy 2004 Colorectal Cancer Screening: Sigmoidoscopy 2004 Diabetes: Hemoglobin A1C 11/09/2024 Diabetes: Ophthalmology Exam 11/09/2024 Diabetes: Pedal Pulse Checked 11/09/2024 Diabetes: Sensory Foot Exam 11/09/2024 Diabetes: Visual Foot Exam 11/09/2024 Influenza Vaccine (#1) 2025 Hepatitis B Vaccine Aged Out No longe r eligible based on patient's age to complete this topic Procedures Procedure Name Priority Date/Time Associated Diagnosis Comments EXT RESULT ENTRY Routine 11/10/2024 EXT RESULT ENTRY Routine 11/07/2024 RENAL FUNCTION PANEL (EXTERNAL LAB ENTRY) Routine 11/06/2024 from Last 3 Months Results * (ABNORMAL) EXT RESULT ENTRY (11/10/2024) Only the most recent of2 resultswithin the time period is included. Sodium 144 137 - 147 Potassium 4.4 3.4 - 5.5 Carbon Dioxide 18 mmol/L BUN 23(A) 4 - 21 mg/dL Creatinine 1.17(A) 0.50 - 1.10 mg/dL Calcium 8.9 8.7 - 10.7 mg/dL eGFR Non-Afr Kuwaiti 51 11/10/2024 Historical Provider LAB BLOOD ORDERABLES More l Result * Renal Function Panel (External Lab) (11/06/2024) Glucose 121 mg/dL BUN 40 mg/dL eGFR 41 BUN/Creatinine Ratio 1.38 Sodium 140 mEq/L Potassium 4.5 mEq/L Chloride 106 Carbon Dioxide 23 mmol/L Calcium 9.2 mg/dL Blood 11/06/2024 Historical Provider LAB BLOOD ORDERABLES More l Result from Last 3 Months Insurance Medicare Medicaid [place]
--- OUTSIDE RECORDS SUMMARY | 2025-01-17 08:53 | XMS_ITS | Clinical Summary ---
Author Organization [facility] Address [address] [place] [address] Care Team Providers Care Laundry Presser Name Role Phone Unavailable Primary Care Provider [...] LUTHER (obstructive sleep apnea) 11/202003/29/2021 Polyneuropathy associated wi th underlying disease ([facility]) 09/21/2020 Acquired hypothyroidism 04/25/2020 Atrial flutter ([facility]) 04/06/2019 Pacemaker 03/16/2019 04/06/2019 Controlled type 2 diabetes m ellitus with hyperglycemia ([facility]) 12/03/2018 Hyperhidrosis 03/29/2018 Dyspepsia 03/29/2018 History of [...] on April 13, 2017 9:50 Encounter info: [id number], [facility], One Time OP, 04/13/2017 - 04/13/2017 Contributor system: [employer] * Final Report * NM Myocardial Perfusion Spect Multi Myocardial Perfusion Imaging Demographics Patient Name SG BUTLER Gender Female [employer] Room Number Height 65 inches Date of 1955 Weight 300 pounds Age 61 year(s) BSA 2.35 m2 Accession Number [id number] BMI 49.98 kg/m2 Date of study 04/13/2017 Resident Referring Physician Donato Brunson MD Fellow Ekaterina Flores MD Interpreting Physician Patrice Do MD DE Technologist Devon Henriquez Procedure Procedure Type: Myocardial [...] complete appropriate response Functional capacity:Not assessed HR/BP product:23585 Time of RP Injection:050 min Chest pain:No [...] This document has an image Atrial fibrillation ([facility]) 08/25/2017 Overview (08/25/2017): Name: BESS BETTENCOURT Admit Date: 05/25/17 - 1955/62yr Discharge Date: Location: [facility] - Report #: [id number] DATE OF PROCEDURE: 05/25/2017 PRIMARY CARE PHYSICIAN: RICHARD Nair PROCEDURE PERFORMED: 1. Supraventricular tachycardia ablation. 2. A 3D electro-anatomy mapping. 3. Isuprel drug testing. 4. Intracardiac echocardiography. 5. Transseptal puncture. INDICATION: This is a very pleasant 62-year-old Romanian-speaking female who has history of recurrent symptomatic [...] femoral vein using modified Seldinger technique. One 8-Togolese and 5-Togolese sheath were placed into the right femoral vein and two 7-Togolese and 5-Togolese sheath was placed into the left femoral vein. Catheters were placed in their respective positions. 1. Dynamic Decapolar [employer] catheter for coronary sinus with left atrial pacing and recording. 2. [facility] for right atrium. 3. [facility] for right ventricle. 4. [facility] his bundle pacing and recording. Baseline intervals reveal LA interval 148 milliseconds, AH of 56 milliseconds. [...] made to go transseptal. We placed a 9-Togolese IV sheath in the right groin for the ICE catheter. Then, with the help of SL1 and [place] needle, we were able to obtain a [...] obtain a safe transseptal access with a [place] needle, but while advancing the sheath, we lost the transseptal access. Then, we reattempted after placing ICE catheter in adequate position to see the fossa ovalis and sheath actually fell into the fossa ovalis and went transseptal without actually advancing the needle. I am not 100% confirm this happened because of PFO or because of the previous transseptal access with [place] needle. Nonetheless, we did a couple of [...] the outpatient visit. Diana Olvera MD Doc #:[id number] cc: RICHARD Nair PA Dictating Provider: DIANA OLVERA MD [facility] <Electronically signed by DIANA OLVERA MD> [...] degenerative changes without acute fracture or dislocation. 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 09/26/2014, EMG 03/25/2016 with bilateral lumbar radiculopathy 09/26/2013 Morbid obesity (CMS & HHS-HCC) 09/26/2013 S/P CYNDIE (total abdominal hysterectomy) 1992 [...] 60 10/31/2021 10:29 AM EDT Temperature 36.8 C (98.3 F) 10/31/2021 10:29 AM EDT Respiratory Rate 20 10/31/2021 10:29 AM EDT Oxygen Saturation 91% 10/31/2021 10:29 AM EDT Inhaled Oxygen Concentration - - Weight 133.8 kg (295 lb) 10/31/2021 10:29 AM EDT Height 165.1 cm (5' 5 ) 10/31/2021 10:29 AM EDT Body Mass Index 49.09 10/31/2021 10:29 AM EDT Plan of Treatment Not on file Procedures Procedure Name Priority Date/Time Associated Diagnosis Comments REFERRAL SCANNED DOCUMENT 12/08/2024 3:00 AM EDT from Last 3 Months Results * REFERRAL SCANNED DOCUMENT (12/08/2024 3:00 AM EDT) 12/08/2024 3:00 AM EDT Katerine Novak PA-C SCAN REFERRAL Final Result from Last 3 Months Insurance [place] MEDICAID Member Subscriber Plan / Payer ( fective 2019-Present) Name:Kikicaitlinricardo Bess Relation to Subscriber:Self Name:Bess Bettencourt Payer ID:[id number] Group ID:Not on file Type:Medicaid Address: [address] [id number] [place]ICARE - [place]
== END 2025-01-17 09:14 | disposition home or self-care (01) ==
LOC: HO.HOS 08:36
PROVIDERS: Visit Provider Orthopaedic Surgery
DX: M17.0 Bilateral primary osteoarthritis of knee (principal)
CPT/HCPCS: 20610; 99213

== ENCOUNTER → 2025-01-17 08:35 | Outpatient (BNVA) | payer MEDICARE, MEDICAID, SELFPAY | PROVIDERS: Visit Provider Orthopaedic Surgery | DX: M17.0 Bilateral primary osteoarthritis of knee (principal) | CPT/HCPCS: 20610; 99212; J2003; J7318 ==

== ENCOUNTER 2025-04-20 14:30 | Outpatient (AMB) | payer MEDICARE, MEDICAID, SELFPAY ==
--- OUTSIDE RECORDS SUMMARY | 2025-04-17 14:00 | XMS_ITS | Encounter Summary ---
Author Organization [facility] Address [address] [place] [phone] Phone Care Team Providers Care Institution Librarian Name Role Phone Maryellen Martinez PA-C Primary Care Provider [phone] Reason for Visit * Reason Comments MAUREEN (acute kidney injury) Encounter Details Date Type Department Care Team (Late st Contact Info) Description 04/17/2025 2:00 PM EDT Office Visit [facility] [address] [phone] Manuel Varghese MD [address] [address] Stage 3 chronic kidney disease, not otherwise specified (HCC) (Primary Dx); Hypertension; Type 2 diabetes mellitus with diabetic autonomic (poly)neuropathy, not otherwise specified (HCC); Heart failure with normal ejection fraction (HCC) Social History Tobacco Use Types Packs/Day Years Used Date Smoking Tobacco: Never Smokeless Tobacco: Never Alcohol Use Standard Drinks/Week Comments Never 0 (1 standard drink = 0.6 oz pur e alcohol) Comments Unknown Sex and Gender Information Value Date Recorded Sex Assigned at Not on file Legal Sex Female 10:25 AM EDT Gender Identity Not on file Sexual Orientation Not on file documented as of this encounter Last Filed Vital Signs Vital Sign Reading Time Taken Comments Blood Pressure 132/68 04/17/2025 1:50 PM EDT Pulse 60 04/17/2025 1:50 PM EDT Temperature - - Respiratory Rate - - Oxygen Saturation - - Inhaled Oxygen Concentration - - Weight 126 kg (277 lb) 04/17/2025 1:50 PM EDT Height - - Body Mass Index - - documented in this encounter Progress Notes * Manuel Varghese MD - 04/17/2025 2:00 PM EDT [facility] Patient Name: Bess White, Female Date of : 1955, 70 y.o. Date: 04/17/2025 Referring MD: No primary care provider on file. PCP: Maryellen Martinez PA-C Reason For Visit: I had of pleasure of seeing your patient for follow up of CKD The following portions of the patient's chart were reviewed in this encounter and updated as appropriate: Allergies Meds Problems Med Hx Surg Hx Fam Hx Constitutional: Negative for chills, fever, malaise/fatigue and weight loss. HENT: Negative for ear pain, hearing loss and tinnitus. Eyes: Negative for blurred vision, double vision, photophobia and pain. Respiratory: Negative for cough, hemoptysis, sputum production, shortness of breath and wheezing. Cardiovascular: Negative for chest pain, palpitations, orthopnea, claudication and leg swelling. Gastrointestinal: Negative for abdominal pain, diarrhea, nausea and vomiting. Genitourinary: Negative for dysuria, flank pain, frequency, hematuria and urgency. Musculoskeletal: Negative for myalgias. Skin: Negative for itching and rash. Neurological: Negative for dizziness, tingling and headaches. Psychiatric/Behavioral: Negative for depression. Full 13 point review of systems unremarkable except as noted above. Past Medical History: Diagnosis Date Acute kidney failure (HCC) Atrial fibrillation (HCC) Diabetes mellitus without mention of complication, type II or unspecified type, not stated as uncontrolled (HCC) Essential hypertension Other and unspecified hyperlipidemia Past Surgical History: Procedure Laterality Date HYSTERECTOMY Social History Tobacco Use Smoking status: Never Smokeless tobacco: Never Substance Use Topics Alcohol use: Never Family History Family history unknown: Yes Current Outpatient Medications Medication Sig Dispense Refill acetaminophen (Tylenol) 325 MG tablet Take 325 mg by mouth in the morning and 325 mg at noon and 325 mg in the evening. atorvastatin (LIPITOR) 20 MG tablet Take 10 mg by mouth at bed time carvedilol (Coreg) 6.25 MG tablet Take 6.25 mg by mouth in the morning and 6.25 mg in the evening. Take with meals. Dulaglutide (Trulicity) 1.5 MG/0.5ML solution auto-injector Inject 1.5 mg under the skin 1 (one) time per week flecainide (TAMBOCOR) 150 MG tablet Take 150 mg by mouth in the morning and 150 mg in the evening. furosemide (LASIX) 20 MG tablet Take 20 mg by mouth in the morning and 20 mg in the evening. ketorolac (ACULAR) 0.5 % ophthalmic solution Administer 1 drop into both eyes in the morning and 1 drop in the evening. metFORMIN XR (GLUCOPHAGE-XR) 500 MG 24 hr tablet 1 tablet at bed time valsartan (DIOVAN) 160 MG tablet Take 160 mg by mouth 1 (one) time each day Vitamin D, Cholecalciferol, 50 MCG (2000 UT) capsule Take 1 capsule by mouth 1 (one) time each day warfarin (COUMADIN) 2.5 MG tablet 2.5 mg 1 tablet on Thursday and 2 tablets the rest 6 days of the week No current facility-administered medications for this visit. No Known Allergies Objective: Vitals: 04/17/25 1350 BP: 132/68 Pulse: 60 Weight: 277 lb (126 kg) Physical Exam Constitutional: Oriented to person, place, and time. HEENT: Mouth/Throat: Oropharynx is clear and moist. Eyes: Pupils are equal, round, and reactive to light. Neck: No JVD present. Cardiovascular: Regular rhythm. Pulmonary/Chest: Breath sounds normal. Abdominal: Soft. There is no abdominal tenderness. Musculoskeletal: Normal range of motion. Neurological: Alert and oriented to person, place, and time. Skin: Skin is warm. Psychiatric: Normal mood and affect. eGFR Date Value Ref Range Status 10/30/2021 78 > OR = 60 mL/min/1.73m2 Final eGFR Non-Afr Syrian Date Value Ref Range Status 11/10/2024 51 Final Chemistry Lab Units 11/10/24 0000 11/07/24 0000 11/06/24 0000 CREATININE mg/dL 1.17* 1.42* -- BUN mg/dL 23* 36* 40 BUN / CREAT RATIO -- -- 1.38 EGFRNAFR 51 -- -- GLUCOSE -- 103 121 POTASSIUM 4.4 4.7 4.5 SODIUM 144 139 140 CO2 mmol/L 18 23 23 CHLORIDE -- 105.0 106 Bone Mineral Lab Units 11/10/24 0000 11/07/24 0000 11/06/24 0000 CALCIUM mg/dL 8.9 9.0 9.2 No lab exists for component: SPECGRAV , GLUCOSEUR , BILIRUBINUR , RBCUR , UPROTEIN , LEUKOCYTESUR , NITRITE PLAN: Assessment & Plan 1. Stage 3 chronic kidney disease, not otherwise specified (HCC) 2. Hypertension 3. Type 2 diabetes mellitus with diabetic autonomic (poly)neuropathy, not otherwise specified (HCC) 4. Heart failure with normal ejection fraction (HCC) Kidney function at baseline (Scr 1.1-1.2 mg/dl). She most likely has CKD due to: -hypertensive and diabetic nephrosclerosis -nephron loss due to aging -residual kidney function loss from prior MAUREEN BP is acceptable. She is on valsartan 160 mg daily She has HFpEF Volume status is close to dry weight. REC RAASi Continue furosemide 20 mg daily Follow kidney function and electrolytes UPCR iPTH and vit Avoid NSAID Low sodium diet Orders Placed This Encounter Renal funtion panel PTH, intact Vit D 25 hydroxy urine albumin / creatinine ratio Return in 6 months (on 10/16/2025). Manuel Varghese MD documented in this encounter Plan of Treatment Upcoming Encounters Date Type Department Care Team (Late st Contact Info) Description 10/11/2025 2:15 PM EDT Office Visit [facility] [address] [place] [address] Manuel Varghese MD [address] [phone] Scheduled Orders Name Type Priority Associated Diagnoses Orde r Schedule Renal funtion panel Lab Routine Stage 3 chronic kidney disease, not otherwise specified (HCC) Expected: 04/17/2025, Expires: 05/18/2026 PTH, intact Lab Routine Stage 3 chronic kidney disease, not otherwise specified (HCC) Expected: 04/17/2025, Expires: 05/18/2026 Vit D 25 hydroxy Lab Routine Stage 3 chronic kidney disease, not otherwise specified (HCC) Expected: 04/17/2025, Expires: 05/18/2026 urine albumin / creatinine ratio Lab Routine Stage 3 chronic kidney disease, not otherwise specified (HCC) Expected: 04/17/2025, Expires: 05/18/2026 documented as of this encounter Visit Diagnoses Diagnosis Stage 3 chronic kidney disease, not otherwise specified (HCC)- Primary Hypertension Type 2 diabetes mellitus with diabetic autonomic (poly)neuropathy, not otherwise specified (HCC) Heart failure with normal ejection fraction (HCC) documented in this encounter Care Teams Institution Librarian Relationship Specialty Start Date End Date Maryellen Martinez PA-C [address] [facility] [address] [place] [id number] PCP - General Physician Diver'S Tender 01/17/25 documented as of this encounter
--- NOTE | 2025-04-20 14:41 | A.OFFVIS_ITS ---
Vital Signs 04/20/25 14:44 Height 5 ft 3 in Weight 277 lb BMI 49.1 Intake Visit Reasons: Bilateral knee pains Intake Note: Bess is a 69 year old woman who presents with complaints of bilateral knee pains. She describes her pains as sharp in nature. She has had cortisone injections which gave her temporary relief. She has also had Durolane injections which gave her fairly good relief. She wishes to hold off on surgery if at all possible. She has tried Tylenol, a home exercise program and physical therapy exercises which aggravated her pain. At this point her bilateral knee pains are interfering with her activities of daily living and her ability to sleep well through the night. Allergies No Known Allergies Allergy (Verified 04/20/25 14:44) Medication List - Last Reconciled 04/21/25 by Oscar Ortiz MD atorvastatin 20 mg PO DAILY cyanocobalamin (vitamin B-12) 1,000 mcg PO DAILY enoxaparin mg subcut hydrochlorothiazide 12.5 mg PO DAILY levothyroxine 25 mcg PO DAILY lidocaine 5% 1 patch topical DAILY metformin ER 500 mg PO DAILY semaglutide (Ozempic) mg subcut warfarin mg PO Physical Exam Vital Signs: BMI result Body Mass Index 49.1 Const Other: Well-nourished well-developed very friendly female awake alert and oriented x3 in no acute distress Extrem Other: Bilateral knee examination shows minimal effusions, palpable crepitus with range of motion, pain with range of motion, no instability Office Procedures AMB Joint Injection/Aspiration Joint Injection/Aspiration Primary Site: right knee Prep: site was prepped using aseptic technique Injected: 40 mg of, DepoMedrol, with 4 mL of and 1% plain lidocaine Procedure: The patient tolerated the procedure well Coding 01900 - Large joint Procedure code (CPT) selection complete AMB Joint Injection/Aspiration Joint Injection/Aspiration Primary Site: left knee Prep: site was prepped using aseptic technique Injected: 40 mg of, DepoMedrol, with 4 mL of and 1% plain lidocaine Procedure: The patient tolerated the procedure well Coding 63685 - Large joint Procedure code (CPT) selection complete Results Reviewed Results Reviewed: X-rays of the patient's bilateral knees taken previously show joint space narrowing, subchondral sclerosis, no acute bony abnormalities Assessment & Plan Assessment & Plan (1) Osteoarthritis of left knee: Code(s): M17.12 - Unilateral primary osteoarthritis, left knee Category: Medical (2) Osteoarthritis of right knee: Code(s): M17.11 - Unilateral primary osteoarthritis, right knee Category: Medical Plan Ms. White presents with bilateral knee pains due to osteoarthritis. The risks and benefits of bilateral knee cortisone injections were discussed at length with the patient. The patient wished to proceed. She tolerated the injections well. If she does not get lasting relief from the cortisone injections I will see if the patient's insurance company will cover another Durolane viscosupplementation injection for both of her knees. I will see her back once the injections are approved. Feel free to call me at any time should questions regarding her orthopedic management arise. I spent 21 minutes in reviewing the patient's records and imaging studies, se eing the patient and documenting in the medical record. Orders: Orders AMB Joint Injection/Aspiration 04/20/25 M17.12 - Unilateral primary osteoarthritis, left knee AMB Joint Injection/Aspiration 04/20/25 M17.11 - Unilateral primary osteoarthritis, right knee Coding Level of Care Code Est Pt Level 3 (31517) Complex EM visit Add On G2211 Diagnoses Osteoarthritis of left knee M17.12 Osteoarthritis of right knee M17.11 CPT Codes Coding - 49450 Large joint: 94045 - Large joint ([id number]) Coding - 67620 Large joint: 92902 - Large joint ([id number])
[2025-04-20 14:44] VITALS: BMI 49.1
--- OUTSIDE RECORDS SUMMARY | 2025-04-20 17:36 | XMS_ITS | Clinical Summary ---
Author Organization [facility] Address [address] [place] [address] Care Team Providers Care Blocker Heated [employer] Forms Name Role Phone Katerine Novak Primary Care Provider [phone] Medical History Medical History Date Comments Essential [...] 2005 Zoster Vaccines (1 of 2) 2005 Depression Screening 06/22/2024 COVID-19 Vaccine (1 - 2023-2 5 season) 2025 Influenza Vaccine (#1) 2025 RSV Immunization Adult [...] age to complete this topic Care Teams Blocker [employer]ated [employer] Forms Relationship Specialty Start Date End Date Katerine Novak PA [address] [place] [phone] PCP - General Internal Medicine 03/25/16
--- OUTSIDE RECORDS SUMMARY | 2025-04-20 17:37 | XMS_ITS ---
Author Name [facility] Organization Unknown Results Test Name/Text Value Interpretation Date Range Source TROPONIN T 17.0 NG/L 03/31/2025 - [facility] PROTHROMBIN TIME (PT) 26.0 SEC Above high normal 03/31/2025 10 - 12 [facility] INR 2.4 Above high normal 03/31/2025 0.9 - 1.1 [facility] D-DIMER <= 243 Normal 03/31/2025 - [facility] TROPONIN T 19.0 NG/L 03/31/2025 - [facility] BUN/CREATININE RATIO 23.7 03/31/2025 [facility] EST CREATININE CLEARANCE CALC 86.4 mL/min 03/31/2025 [facility] EST. GLOMERULAR FILTRATION 80.0 03/31/2025 [facility] SODIUM 139.0 MMOL/L Normal 03/31/2025 136 - 145 [facility] CO2 29.0 MMOL/L Normal 03/31/2025 22 - 29 [facility] CALCIUM 9.0 MG/DL Normal 03/31/2025 8.8 - 10.2 [facility] CHLORIDE 100.0 MMOL/L Normal 03/31/2025 98 - 107 [facility] ANION GAP 14.0 MMOL/L 03/31/2025 - [facility] GLUCOSE, RANDOM 136.0 MG/DL Normal 03/31/2025 70 - 139 [facility] BLOOD UREA NITROGEN 19.0 MG/DL Normal 03/31/2025 6 - 20 [facility] CREATININE 0.8 MG/DL Normal 03/31/2025 0.5 - 0.9 [facility] POTASSIUM 4.1 MMOL/L Normal 03/31/2025 3.5 - 4.9 [facility] ABSOLUTE NEUTROPHILS 4.8 K/UL Normal 03/31/2025 1.8 - 7. 8 [facility] ABSOLUTE IMMATURE GRANULOCYTE 0.02 K/UL Normal 03/31/2025 0 - 0.08 [facility] ABSOLUTE EOS 0.2 K/UL Normal 03/31/2025 0 - 0.5 [facility] NEUTROPHILS 73.2 % 03/31/2025 [facility] MONOCYTES 4.9 % 03/31/2025 [facility] ABSOLUTE LYMPHS 1.2 K/UL Normal 03/31/2025 1 - 4.8 [facility] BASOPHILS 0.5 % 03/31/2025 [facility] LYMPHOCYTES 18.0 % 03/31/2025 [facility] PLATELET COUNT 169.0 K/UL Normal 03/31/2025 150 - 450 [facility] ABSOLUTE MONOS 0.3 K/UL Normal 03/31/2025 0 - 0.8 [facility] RDW 13.4 % Normal 03/31/2025 11.5 - 14.5 [facility] HEMOGLOBIN 15.9 GM/DL Normal 03/31/2025 12.5 - 16 [facility] HEMATOCRIT 47.6 % Above high normal 03/31/2025 37 - 47 [facility] RBC 5.42 M/UL Above high normal 03/31/2025 4.2 - 5.4 [facility] WBC 6.5 K/UL Normal 03/31/2025 4 - 10.5 [facility] MEAN PLATELET VOLUME 9.9 fL Normal 03/31/2025 8.8 - 13 .6 [facility] EOSINOPHILS 3.1 % 03/31/2025 [facility] MCH 29.3 PG Normal 03/31/2025 27 - 31 [facility] MCHC 33.4 GM/DL Normal 03/31/2025 32 - 36 [facility] MCV 87.8 FL Normal 03/31/2025 78 - 100 [facility] ABSOLUTE BASOS 0.0 K/UL Normal 03/31/2025 0 - 0.2 [facility] IMMATURE GRANULOCYTE PERCENT 0.3 % Normal 03/31/2025 0 - 0.8 [facility] Encounters Encounter Type Encounter Reason Primary Diagnosis Location Date Emergency HIGH BP, PACEMAKER, PALPITATIONS [facility] 03/31/2025 Care Team Organization Name Specialty Phone Email Start Date End Da te [facility] 04/01/2025 [facility] PHYSICIAN NO Primary Care 025
--- OUTSIDE RECORDS SUMMARY | 2025-04-20 17:37 | XMS_ITS | Clinical Summary ---
Author Organization [facility] Address [address] [address] Phone Care Team Providers Care Freight Adjuster Name Role Phone Maryellen Martinez PA-C Primary Care Provider [phone] Allergies No known active allergies Medications atorvastatin (LIPITOR) 20 MG tablet Take 10 mg by mouth at bed time 6 Active carvedilol (Coreg) 6.25 MG tablet Take 6.25 mg by mouth in the morning and 6.25 mg in the evening. Take with meals. 3 Active Dulaglutide (Trulicity) 1.5 MG/0.5ML solution auto-injector [...] noon and 325 mg in the evening. 5 Active Vitamin D, Cholecalciferol , 50 MCG (1999 UT) capsule Take 1 capsule by mouth 1 (one) time each day Active valsartan (DIOVAN) 160 MG tablet Take 160 mg by mouth 1 (one) time each day Active furosemide (LASIX) 20 MG tablet Take 20 mg by mouth in the morning and 20 mg in the evening. Active Dapagliflozin Propanediol (Farxiga) 10 MG tablet Take 10 mg by mouth 1 (one) time each day 5 04/17/20 25 Discontin ued(Med List Maintenan ce) Active Problems Problem Noted Date Diagnosed Date Acute nontraumatic kidney injury, not otherwise specified 01/17/2025 Hypertension 01/17/2025 Encounters Date Type Department Care Team Description 04/17/2025 2:00 PM EDT Office Visit [facility] [address] [address] Manuel Varghese MD Stage 3 chronic kidney disease, not otherwise specified (HCC) (Primary Dx); Hypertension; Type 2 diabetes mellitus with diabetic autonomic (poly)neuropathy, not otherwise specified (HCC); Heart failure with normal ejection fraction (HCC) from Last 3 Months Social History Tobacco Use Types Packs/Day Years Used Date Smoking Tobacco: Never Smokeless Tobacco: Never Tobacco Cessation:Counseling Given: Not Answered Alcohol Use Standard Drinks/Week Comments Never 0 (1 standard drink = 0.6 oz pur e alcohol) Comments Unknown Sex and Gender Information Value Date Recorded Sex Assigned at Not on file Legal Sex Female 10:25 AM EDT Gender Identity Not on file Sexual Orientation Not on file Last Filed Vital Signs Vital Sign Reading Time Taken Comments Blood Pressure 132/68 04/17/2025 1:50 PM EDT Pulse 60 04/17/2025 1:50 PM EDT Temperature - - Respiratory Rate - - Oxygen Saturation - - Inhaled Oxygen Concentration - - Weight 126 kg (277 lb) 04/17/2025 1:50 PM EDT Height - - Body Mass Index - - Plan of Treatment Upcoming Encounters Date Type Department Care Team ([facility] st Contact Info) Description 10/11/2025 2:15 PM EDT [facility] [address] [place] [address] Manuel Varghese MD [address] [address] Health Maintenance Due Date Last [...] on patient's age to complete this topic Insurance Medicare Medicaid [place] Care Teams Freight Adjuster Relationship Specialty Start Date End Date Maryellen Martinez PA-C [address] [place] [address] [place] [phone] PCP - General Physician Machine Adjuster Leader 01/17/25
== END 2025-04-20 15:09 | disposition home or self-care (01) ==
LOC: HO.HOS 14:30
PROVIDERS: Visit Provider Orthopaedic Surgery
DX: M17.0 Bilateral primary osteoarthritis of knee (principal)
CPT/HCPCS: 20610; 99213

== ENCOUNTER → 2025-04-20 14:30 | Outpatient (BNVA) | payer MEDICARE, MEDICAID, SELFPAY | PROVIDERS: Visit Provider Orthopaedic Surgery | DX: M17.0 Bilateral primary osteoarthritis of knee (principal); M25.562 Pain in left knee; M25.561 Pain in right knee | CPT/HCPCS: 20610; 99212; J1010; J2003 ==